=== PATIENT | male | born 1990 | race Caucasian/White ===

== ENCOUNTER 2017-12-05 04:16 | Emergency (ER) | payer OTHER ==
[~2017-12-05] VITALS: Ht 180.3 cm; Wt 106.6 kg
[2017-12-05 04:19] VITALS: BP_SYST 176
[2017-12-05] MEDS ORDERED: LIDOCAINE 1% 10 MG/ML, 20 ML MDV IJ ONE (04:30)
[2017-12-05] MEDS ORDERED: HYDROcodone/ACETAMIN 7.5-325 MG TAB PO ONE (04:30)
[2017-12-05] MEDS ORDERED: BACITRACIN 1 GM OINT TP ONE (04:30)
[2017-12-05] MEDS ORDERED: DIPH-TET-PERTUS Vaccine 0.5 ML VIAL (ADACEL) IM ONE (04:30)
[2017-12-05 05:41] VITALS: BP_SYST 159
== END 2017-12-05 05:41 | disposition home or self-care (01) ==
LOC: SED 04:16
DX: S61.411A Laceration without foreign body of right hand, initial encounter (principal); I10 Essential (primary) hypertension; W23.0XXA Caught, crushed, jammed, or pinched between moving objects, initial encounter; Y93.89 Activity, other specified; Y92.89 Other specified places as the place of occurrence of the external cause; Y99.8 Other external cause status
CPT/HCPCS: 12002; 90471; 90715; 99283; J2001